=== PATIENT | female | born 2000 | race Caucasian/White ===

== ENCOUNTER 2024-12-02 08:17 | Outpatient (CLI) | payer OTHER, SELFPAY ==
[2024-12-02 15:11] LABS: Chlamydia DNA Amplified* NOT DETECTED (No Detected); GC DNA Amplified* NOT DETECTED (No Detected)
== END 2024-12-02 08:18 | disposition home or self-care (01) ==
PROVIDERS: PCP Physician Assistant Medical; Visit Provider Physician Assistant Medical
DX: Z01.419 Encounter for gynecological examination (general) (routine) without abnormal findings (principal); N92.6 Irregular menstruation, unspecified; F41.9 Anxiety disorder, unspecified; J45.30 Mild persistent asthma, uncomplicated; Z13.6 Encounter for screening for cardiovascular disorders; Z13.1 Encounter for screening for diabetes mellitus; Z13.0 Encounter for screening for diseases of the blood and blood-forming organs and certain disorders involving the immune mechanism; R41.840 Attention and concentration deficit; G47.00 Insomnia, unspecified; Z11.3 Encounter for screening for infections with a predominantly sexual mode of transmission
CPT/HCPCS: 80061; 83498; 83525; 84146; 84270; 84402; 84403; 84439; 84443; 86592; 86593; 86703; 86706; 86780; 86803; 87340; 87491; 87529; 87591; 87624; 87625; 88141; 88142